=== PATIENT | male | born 1960 | race Caucasian/White ===

== ENCOUNTER 2021-03-29 15:15 | Outpatient (CLI) | payer BC ==
[2021-03-29 16:39] LABS: Hemoglobin 14.7 g/dL (13.5-17.5); Mean Corpuscular Hemoglobin 34.8 pg (27.0-33.0); Mean Corpuscular Volume 99.3 fl (81.2-95.1); Platelet Count 183 10x3/uL (150-450); RBC Distribution Width 12.1 % (11.5-14.5); Red Blood Cell (RBC) Count 4.23 10x6/uL (4.32-5.72); White Blood Cell (WBC) Count 7.4 10x3/uL (3.5-10.5)
[2021-03-29 17:11] LABS: PTT 23.6 sec (22.0-33.0); Prothrombin Time 10.9 sec (9.5-12.1)
[2021-03-30 01:06] LABS: SARS-CoV-2 PCR by NAA Not Detected (NotDetected)
== END 2021-03-29 15:16 | disposition home or self-care (01) ==
LOC: LABBT 15:15
PROVIDERS: ATTEND Surgery
DX: Z01.818 Encounter for other preprocedural examination (principal); M51.16 Intervertebral disc disorders with radiculopathy, lumbar region; Z20.822 Contact with and (suspected) exposure to COVID-19
CPT/HCPCS: 85027; 85610; 85730; 93005; 93010; U0003; U0005

== ENCOUNTER 2021-04-03 09:38 | Observation (INO) | payer BC ==
[2021-04-03] MEDS ORDERED: ceFAZolin 2 GM/DEX 5% 100 ML BAG ONE ×2 (09:50→18:30)
[2021-04-03] MEDS ORDERED: Thrombin 5000 UNITS/5 ML VIAL ONE (13:29)
[2021-04-03] MEDS ORDERED: Midazolam HCl 2 mg/2 ml Vial ONE (13:36)
[2021-04-03 13:38] LABS: Anion Gap 12 mmol/L (10-20); BUN (Urea Nitrogen) 8 mg/dL (8.4-25.7); Calc. Creatinine Clearance 144 mL/min (70-130); Calcium 9.2 mg/dL (7.8-10.44); Carbon Dioxide 26 mmol/L (22-29); Chloride 104 mmol/L (98-107); Glucose 87 mg/dL (70-105); Potassium 3.9 mmol/L (3.5-5.1); Sodium 138 mmol/L (136-145)
[2021-04-03] MEDS ORDERED: HYDROmorphone 2 MG/ML VIAL ONE (13:39)
[2021-04-03] MEDS ORDERED: Fentanyl 100 MCG/2 ML VIAL ONE ×2 (13:39→15:52)
[2021-04-03] MEDS ORDERED: Lidocaine 1% PF 5 ML VIAL ONE (13:50)
[2021-04-03] MEDS ORDERED: Dexamethasone 20 MG/5 ML VIAL ONE (13:50)
[2021-04-03] MEDS ORDERED: Ondansetron PF 4 MG/2 ML Vial ONE (13:50)
[2021-04-03] MEDS ORDERED: PHENYLEPHRINE-NS 100 MCG/ML 10 ML SYRINGE ONE (13:50)
[2021-04-03] MEDS ORDERED: Rocuronium Bromide 10 MG/ML (10ML VIAL) ONE (13:50)
[2021-04-03] MEDS ORDERED: Glycopyrrolate 0.2 MG/ML 5 ML SYRINGE ONE (13:50)
[2021-04-03] MEDS ORDERED: PROPOFOL 200 MG/20 ML VIAL ONE (13:50)
[2021-04-03] MEDS ORDERED: ePHEDrine 50 MG/ML VIAL ONE (13:50)
[2021-04-03] MEDS ORDERED: Acetaminophen 325 MG TAB PO PRN ×2 (14:14→20:11)
[2021-04-03] MEDS ORDERED: Acetaminophen/Codeine 30-300mg Tablet PO PRN ×2 (14:14→20:12)
[2021-04-03] MEDS ORDERED: HYDROcodone/Acetaminophen 7.5/325 mg Tablet PO PRN (14:14)
[2021-04-03] MEDS ORDERED: tiZANidine HCl 4 MG TAB PO PRN ×2 (14:14→20:15)
[2021-04-03] MEDS ORDERED: traMADol HCl 50 MG TAB PO PRN ×2 (14:14→20:12)
[2021-04-03] MEDS ORDERED: hydrALAZINE 20 MG/ML VIAL SLOW IVP PRN (14:16)
[2021-04-03] MEDS ORDERED: Tamsulosin HCl 0.4 MG CAP ONE (16:19)
[2021-04-03] MEDS ORDERED: Morphine 4 MG/ML VIAL ONE (16:57)
[2021-04-03] MEDS ORDERED: HYDROcodone/Acetaminophen 5/325 mg Tablet ONE (17:18)
[2021-04-03] MEDS ORDERED: ceFAZolin Sodium/D5W 2 GM in Premix Bag 1 BAG IVPB SCH ×2 (18:00→22:00)
[2021-04-03] MEDS ORDERED: Sodium Chloride 0.9% 10 ML ONE (19:22)
[2021-04-03] MEDS ORDERED: Sodium Chloride 0.9% 0 ML ONE (19:22)
[2021-04-03] MEDS ORDERED: Morphine 4 MG/ML VIAL SLOW IVP PRN (19:52)
[2021-04-03] MEDS: Sodium Chloride 0.9% 1,000 ML IV SCH (20:32)
[2021-04-03] MEDS: HYDROcodone/Acetaminophen 7.5/325 mg Tablet PO PRN (20:34)
[2021-04-03] MEDS ORDERED: Losartan 25 MG TAB PO SCH (21:00)
[2021-04-03 22:20] VITALS: BMI 26.4
[2021-04-04] MEDS: HYDROcodone/Acetaminophen 7.5/325 mg Tablet PO PRN ×2 (03:40→11:07)
[2021-04-04] MEDS: Sodium Chloride 0.9% 1,000 ML IV SCH (08:04)
[2021-04-04] MEDS ORDERED: Vit A,C & E/Lutein/Minerals Tablet PO SCH (09:00)
[2021-04-04 11:10] VITALS: BP 155/79; TEMP 98.5
== END 2021-04-04 11:35 | disposition home or self-care (01) ==
LOC: SDC 09:38 → SURG B 14:14
PROVIDERS: ADMIT Surgery; ATTEND Surgery
PROC: 01NR0ZZ Release Sacral Nerve, Open Approach (ICD-10-PCS; principal; 2021-04-03)
PROC: 0SB40ZZ Excision of Lumbosacral Disc, Open Approach (ICD-10-PCS; 2021-04-03)
DX: M51.17 Intervertebral disc disorders with radiculopathy, lumbosacral region (principal); I10 Essential (primary) hypertension; E78.5 Hyperlipidemia, unspecified; F17.210 Nicotine dependence, cigarettes, uncomplicated; Z86.16 Personal history of COVID-19; Z79.899 Other long term (current) drug therapy
CPT/HCPCS: 76000; 80048; 96374; 96375; G0378; J1100; J1170; J2250; J2270; J2405; J2704; J3010; J3370; J3490; J7050